=== PATIENT | male | born 1980 | race Caucasian/White ===

== ENCOUNTER 2024-03-19 13:17 | Emergency (ER) | payer OTHER, SELFPAY ==
[2024-03-19 13:17] VITALS: BP 129/106; PULSE 73; RESP 14; TEMP 36.7; O2SAT 98; BMI 23.7
--- NOTE | 2024-03-19 13:23 | RAD_ITS ---
STUDY: X-RAY - LEFT HAND REASON FOR EXAM: Male, 43 years old. Injury to the left index finger. Soft tissue laceration. TECHNIQUE: 3 view(s) of the hand. COMPARISON: None. FINDINGS: Normal radiocarpal articulation. Normal distal radioulnar joint. Normal visualized carpal bones. Normal carpal articulations Normal carpometacarpal articulation of the thumb. Normal second through fifth carpometacarpal joints. Normal metacarpi. Normal metacarpophalangeal joint of the thumb. Normal interphalangeal joint of the thumb. Normal proximal and distal phalanges of the thumb. Normal metacarpophalangeal joints of the second through fifth fingers. Normal proximal and distal interphalangeal joints of the second through fifth fingers. Normal phalanges of the second through fifth fingers. Soft tissue swelling. RAD/Hand Min 3 Views IMPRESSION: Soft tissue swelling. No bony abnormality is seen. No radiopaque foreign bodies present. Electronically Signed: Silvio Hood MD at 13:41 EDT ,
--- NOTE | 2024-03-19 15:24 | EX.ED.UPPERE ---
HPI History of Present Illness HPI Narrative: 43-year-old male denies any past medical history. Left index finger injury today causing a laceration x 2 at the base of his left index finger. He is right-hand dominant. No prior significant history of any injury or surgeries to his left hand. Denies any other injuries. No other complaints. Chief Complaint: Upper Extremity Injury Informant: patient and spouse/S.O. Occured/Mechanism Mechanism/Context: Yes injury and Yes blunt trauma Onset/Context/Timing Onset: Today and Hours Context: Sudden Onset Timing: Continuous Quality of Pain: Sharp Current Severity: Moderate Maximum Severity: Moderate Associated Symptoms Associated Symptoms: Negative for Parasthesia, Weakness or Loss of Funtion Narrative Narrative: [id number] male left index finger injury. Tetanus need updated. Does need suture repaired. Tetanus Immunization: Unknown Prior similar symptoms: No Recent Illness/Hospitalization: No PFSH PFSH no medical history Allergy/AdvReac Type Severity Reaction Status Date / Time No Known Allergies Allergy Verified 03/19/24 13:17 Social History Smoking Status: Never smoker ROS ROS ED ROS Narrative Denies recent illness. Review of Systems ROS Unobtainable: Denies due to encephalopathy Constitutional Constitutional ED: Denies chills or fever(s) Eyes Eyes: Denies blurry vision ENT ENT ED: Denies ear pain Cardiovascular Cardiovascular: Denies chest pain Respiratory/Chest Respiratory/Chest: Denies cough Gastrointestinal Gastrointestinal: Denies abdominal pain Genitourinary Genitourinary ED: Denies dysuria or hematuria Musculoskeletal Musculoskeletal: Denies back pain Integumentary Denies abscess Neurologic Neurologic: Denies headache(s) Psychiatric Psychiatric: Denies anxiety or depression Endocrine Endocrinology: Denies cold intolerance Hematologic/Lymphatic Hematologic/Lymphatic: Denies easy bleeding Allergic/Immunologic Allergic/Immunologic ED: Denies mouth swelling, tongue swelling or urticaria EXAM Physical Exam Narrative Exam Narrative: [id number] male no acute distress. Vital signs are stable afebrile. HEENT exam normal. Lungs clear. Heart regular rhythm rate about 70. No murmur. Chest wall and ribs nontender. Abdomen soft nontender. Moving all 4 extremities. Neurovascular intact. Specifically left hand index finger proximal phalanx the skin there are 2 different lacerations that are 1 to 2 inches each. But they are parallel. He has normal flexion extension to all digits of the hand specifically index finger. Normal range of motion. No bony deformity. No signs of infection. No significant bleeding. Normal touch sensation distally. Otherwise exam unremarkable. Const Vital Signs: 03/19/24 13:17 Temperature 98.1 F Temperature Source Temporal Pulse Rate 73 Respiratory Rate 14 Blood Pressure 129/106 H Blood Pressure Mean 113 Pulse Ox 98 Oxygen Delivery Method Room Air Positive well nourished and well developed; Negative for cachectic, contractures or unkempt General Appearance ED: well developed; Negative for unkempt, cachectic, contractures, cyanotic, diaphoretic or NAD Nutritional Appearance: Negative for cachectic HEENT Reports moist mucous membranes normocephalic and atraumatic; Negative for trauma or tenderness Eyes PERRL and EOMs intact bilaterally General Eye ED: Negative for other Neck full ROM and supple General: Negative for tenderness or other Lymph Lymphatic: Negative for other Chest Wall inspection of chest normal and palpation of chest normal Resp normal respiratory effort and clear to auscultation bilaterally Effort and Inspection: Negative for pain with movement Auscultation: Negative for rales, rhonchi or wheezes Cardio regular rate, regular rhythm, S1 normal heart sound, S2 normal heart sound and no murmurs Rate: Negative for bradycardia or tachycardic Rhythm: Negative for abnormal rhythm GI non-tender, non-distended and no masses Inspection: Negative for abdominal distention Auscultation: normoactive bowel sounds Palpation: soft; Negative for tender, guarding or rebound tenderness present Back/Spine no CVA tenderness General Back: Negative for CVA tenderness Cervical Spine: Negative for cervical spine tenderness and Negative for other Thoracic Spine / Upper Back: Negative for thoracic spinal tenderness Lumbar Spine / Lower Back: Negative for lumbar spinal tenderness, straight leg raise negative bilaterally or straight leg raise positive right Extremity full ROM Extremity Narrative: Except left index finger tender to palpation. 2 lacerations over the palmar aspect of the proximal phalanx and also the ulnar side of the proximal phalanx. Fingers neurovascular intact. Normal cap refill. Normal touch sensation. Normal flexion extension. Will need to be suture repaired. General Extremety ED: Negative for edema General Extremity: Negative for edema Neuro oriented x3, CN's II-XII intact bilaterally, moves all extremities, no focal motor deficits and no sensory deficits noted Sensorium / Orientation: alert, oriented to person, oriented to place and oriented to time; Negative for orientation impaired, lethargic or stuporous Sensory Exam: No sensory level loss detected Motor Exam: strength 5/5 throughout Psych mental status grossly normal Appearance: Negative for unkempt Attitude: No agitated Mood & Affect: Negative for depressed, anxious or tearful Skin General Skin Exam: Negative for petechiae Lesions: no lesions Rashes: no rashes Trauma: laceration; Negative for no lacerations or abrasions or abrasion MDM MDM MDM Narrative Medical decision making narrative: [id number]-yat male left index finger lacerations x 2 will need repaired. X-ray was already done by nursing shows no fracture, nor any dislocation or foreign body. Interpreted both by myself and radiologist. Tetanus will also be updated. History & Record Review Discussion w/independent historian: Patient and Family Lab Data Lab results narrative: Left hand x-ray, 3 views, interpreted by myself and the radiologist shows no acute fracture or dislocation. Soft tissue swelling of the left index finger. No foreign body. Radiography Diagnostic Testing: Clinical Impression(s) from Imaging Studies Hand X-Ray 03/19/24 13:23 IMPRESSION: Soft tissue swelling. No bony abnormality is seen. No radiopaque foreign bodies present. Electronically Signed: Silvio Hood MD at 13:41 EDT , Discharge Plan Triage Chief Complaint: Upper Extremity Injury ED Provider: Ron Neff/Rx/DC Orders Print Language: Portuguese
[2024-03-19] MEDS: Diphth,Pertuss(Acell),Tet Vac 0.5 ML Vial IM (15:36)
[2024-03-19] MEDS: Lidocaine 1% (20 ml mdv) 20 ML Vial 10 ML INFILT (15:37)
== END 2024-03-19 16:53 | disposition home or self-care (01) ==
PROVIDERS: Emergency Provider Emergency Medicine; Visit Provider Emergency Medicine
DX: S61.211A Laceration without foreign body of left index finger without damage to nail, initial encounter (principal); Z23 Encounter for immunization; X58.XXXA Exposure to other specified factors, initial encounter
CPT/HCPCS: 12002; 73130; 90471; 90715; 99284

== ENCOUNTER → 2024-09-20 | Outpatient (CLI) | payer OTHER, SELFPAY ==
[2024-09-20 15:22] LABS: Absolute Lymphocyte Count 1.84 X10^3/uL (0.83-4.51); Absolute Neutrophil Count 8.1 X10^3/uL (2.0-7.7); Basophil# 0.04 X10^3/uL; Basophil% 0.4 % (0-1); Eosinophil# 0.05 X10^3/uL; Eosinophils% 0.5 % (0-5); Hematocrit 44.9 % (40-54); Hemoglobin 15.4 g/dL (13.0-16.5); Lymphocyte # 1.84 X10^3/ul (0.83-4.51); Lymphocyte % 17.6 % (19-41); Mean Corp Hgb Conc 34.3 g/dL (32-36); Mean Corpuscular Hgb 31.4 pg (27.0-32.0); Mean Corpuscular Volume 91.4 fL (80-94); Mean Platelet Vol. 10.1 fl (6.2-12.0); Monocyte# 0.43 X10^3/uL; Monocyte% 4.1 % (0-10); NRBC Flagged by Analyzer 0 % (0-5); Neutrophil # 8.07 X10^3/uL (2.7-7.7); Neutrophil % 77.1 % (47-70); Platelet Count 318 K/mm3 (150-450); RBC Distribution Width CV 12.9 % (11.6-14.6); RBC Distribution Width SD 43.9 fl (35.1-43.9); Red Blood Count 4.91 M/mm3 (4.6-6.2); White Blood Count 10.5 K/mm3 (4.4-11.0)
[2024-09-20 15:48] LABS: ALB/GLOB Ratio 1.3 RATIO (0.9-2.4); AST(SGOT) 9 U/L (15-37); Alanine Aminotransfer ALT/SGPT 23 U/L (16-61); Albumin, Serum 4.3 g/dL (3.2-5.0); Alkaline Phosphatase 91 U/L (45-117); Anion Gap 4 (5-15); BUN 11 mg/dL (7-18); BUN/Creat Ratio 12.4 RATIO (10-20); Calcium,Total 9.5 mg/dL (8.5-10.1); Chloride 108 mmol/L (98-107); Cholesterol 183 mg/dL (200); Creatinine, Serum 0.88 mg/dL (0.70-1.30); EST Glomerular Filtration Rate 99 mL/min (>60); Est Glom Filt Rate - Afr Amer 120 mL/min (>60); Globulin 3.2 g/dL (2.2-4.2); Glucose 96 mg/dL (74-106); High Density Lipoprotein 65 mg/dL; Protein, Total 7.5 g/dL (6.4-8.2); Sodium Level 138 mmol/L (136-145); Triglycerides 112 mg/dL; Very Low Density Lipoprotein 22 mg/dL (5-40)
== END | disposition home or self-care (01) ==
PROVIDERS: PCP Physician Assistant; Referring Provider Physician Assistant; Visit Provider Physician Assistant
DX: Z00.00 Encounter for general adult medical examination without abnormal findings (principal)
CPT/HCPCS: 36415; 80053; 80061; 85025

== ENCOUNTER → 2024-10-18 | Outpatient (CLI) | payer OTHER, SELFPAY ==
--- NOTE | 2024-10-18 08:55 | AAAS_ITS ---
Reason For Study: Abdominal pulsitile mass Aorta Measurements Aorta Doppler Measurements Proximal aorta measures1.93 x 1.92cm. in cross- Peak systolic flow velocities within the proximal sectional axis. aorta measure 191.6 cm/sec. Proximal aorta measures1.88cm. in longitudinal Peak systolic flow velocities within the mid aorta axis. measure 113.8 cm/sec. Mid aorta measures1.86 x 1.84cm. in cross- Peak systolic flow velocities within the distal sectional axis. aorta measure 93 cm/sec. Mid aorta measures1.88cm. in longitudinal axis. Distal aorta measures1.78 x 1.80cm. in cross- sectional axis. Distal aorta measures1.78cm. in longitudinal axis. Left Iliac Artery Left iliac artery measures 0.92 x 0.89 cm. in the cross-sectional axis. Left iliac artery measures 0.90 cm. in the longitudinal axis. Peak systolic velocity in the left iliac artery measures 144.8 cm/sec. Right Iliac Artery Right iliac artery measures 0.91 x 0.86 cm. in the cross-sectional axis. Right iliac artery measures 0.86 cm. in the longitudinal axis. Peak systolic velocity in the right iliac artery measures 168.2 cm/sec. Procedure Aorta IVC Iliac vasculature or bypass grafts 53134. Exam performed in department. VL/AAA Screening Interpretation Summary The dimensions of the intra-abdominal aorta appear normal, without evidence of aneurysmal dilatation. The iliac arteries also appear to be normal in caliber bilaterally. Systolic velocities in the proximal intra-abdominal aorta are elevated, which may be indicative of stenosis. Clinical correlation is advised. Otherwise, the intra-abdominal aorta appears patent, de monstrating pulsatile arterial flow. The iliac arteries appear patent, and demonstrate normal, pulsat ile arterial flow and normal peak systolic velocities. Ordering Physician: Jabier Khalil Referring Physician: Jabier Khalil Performed By: Renetta Dailey RVT
== END | disposition home or self-care (01) ==
PROVIDERS: PCP Physician Assistant; Referring Provider Physician Assistant; Visit Provider Physician Assistant
DX: R09.89 Other specified symptoms and signs involving the circulatory and respiratory systems (principal)
CPT/HCPCS: 76706